=== PATIENT | male | born 1945 | race Caucasian/White ===

== ENCOUNTER 2016-08-09 11:33 | Emergency (ER) | payer OTHER ==
[2016-08-09] MEDS ORDERED: HYDROmorphone HCL 1 MG/ML SYR ONE ×2 (12:12→13:52)
[2016-08-09] MEDS ORDERED: ONDANSETRON HCL 4 MG/2 ML VIAL ONE (12:13)
--- NOTE | 2016-08-09 13:03 | CT REPORT ---
HISTORY: Left flank pain and nausea. COMPARISON: None. TECHNIQUE: This examination was performed using automated exposure control, adjustment of mA or kV according to patient size, and/or use of iterative reconstruction technique. Axial contiguous images of the abdome n and pelvis were obtained without oral or IV contrast, coronal reformat images also performed. FINDINGS: LUNGS: There are dependent atelectatic changes. The visualized lungs are otherwise clear. Hepatobiliary:No focal hepatic lesions are seen. The portal vein enhances normally. There is no intra hepatic biliary ductal dilatation. The gallbladder is incompletely distended. There are calcified gal lstones within the lumen of the gallbladder. Spleen: Normal in size and radiographic appearance. Pancreas: No focal pancreatic lesion or pancreatic ductal dilatation. Adrenals:Unremarkable. Kidneys: The kidneys are normal in size bilaterally. There is moderate left hydroureteronephrosis wit h asymmetric left perinephric inflammatory change. Within the wall the bladder, at the left ureterove sicular junction, best seen on image 11 of series 2, there is a 6 mm calcific density consistent with obstructing ureteral calculus. No definite renal calculi are identified. Peritoneum: There is no evidence of free fluid or free air. There is a small umbilical hernia which c ontains fat, without evidence of incarceration or obstruction. Vessels: Unremarkable. Lymph nodes: There is no lymphadenopathy. Bowel: The stomach is incompletely distended. The small bowel appears unremarkable. The appendix is w ell visualized and appears normal. The colon is incompletely distended with stool. No focal bowel wa ll thickening is seen. Pelvis: The prostate is markedly enlarged. There are multiple bladder calculi measuring up to 12 mm in size. Bones: The bones are normally mineralized and aligned. There are degenerative changes noted in spine. No blastic or lytic lesions are identified. The soft tissues appear unremarkable. IMPRESSION: 1. 6 mm left UVJ calculus with mild to moderate associated left hydroureteronephrosis. 2. Multiple bladder calculi. 3. Marked prostatic enlargement. 4. Cholelithiasis without CT evidence of cholecystitis. Final Electronic Signature: This report was electronically signed by Benedicto Muniz MD on 08/10/19 17 1:01 PM. christophe /
--- NOTE | 2016-08-09 15:08 | ER NURSING DOCUMENTATION ---
Nurse's Notes [facility] Name:Rajesh Mccray Age:70 yrs Sex:Male :1945 Arrival Date:08/09/2016 Time:11:33 Bed5 Private MD: Diagnosis:Renal Calculus;Dehydration Presentation: 08/09 11:43 Presenting complaint: Patient states: Left flank pain x 2-3. Transition of care: Home. cb 11:43 Method Of Arrival: Private Vehicle cb 11:43 Acuity: HEIDI 3 cb 11:44 Notified ED Physician of patient's arrival and CC Adam Rose notified. cb Triage Assessment: 11:43 General: Appears distressed, well groomed, Behavior is cooperative. cb 11:43 Pain: Complains of pain in left mid back Pain radiates to left mid back Pain currently cb is 8 out of 10 on a pain scale. EENT: No deficits noted. Neuro: Level of Consciousness is awake, alert, Oriented to person, place, time, event. Cardiovascular: Pulses are 2+ in left radial artery. Respiratory: Airway is patent Trachea midline Respiratory effort is even, unlabored, Respiratory pattern is regular, symmetrical. GI: Reports nausea, since [place]. : Denies burning with urination, urinary frequency. Derm: Denies rash or bruising. Musculoskeletal: No deficits noted. Historical: - Allergies: PENICILLINS; - Home Meds: 1. atorvastatin oral 2. tamsulosin oral 3. Metformin Oral - PMHx: hyperlipidema ; prediabetes ; - PSHx: HERNIA REPAIR; - Tetanus: < 10 years. - Ebola Screening: : Patient negative for fever greater than or equal to 101.5 degrees Fahrenheit, and additional compatible Ebola Virus Disease symptoms. Patient denies exposure to infectious person. Patient denies travel to an Ebola-affected area in the 21 days before illness onset. No symptoms or risks identified at this time. . - Immunization history: Flu Vaccine < 1 year. - Social history: Smoking status: Patient states was never smoker of tobacco. Screenin:47 Infectious Disease Risk None. Abuse screen: Denies threats or abuse. Denies injuries cb from another. Nutritional screening: No deficits noted. Vital Signs: 11:48 BP 143 / 65; Pulse 79; Resp 18; Temp 97.6; Pulse Ox 93% ; Weight 102.06 kg; Height 5 jt ft. 11 in. (180.34 cm); Pain 8/10; 12:35 Pulse Ox 82% on R/A; jt 12:35 Pulse Ox 94% on 2 lpm NC; Pain 5/10; jt 14:30 BP 152 / 78; Pulse Ox 87% on R/A; cb 11:48 Body Mass Index 31.38 (102.06 kg, 180.34 cm) jt ED Course: 11:34 Patient arrived in ED. jt 11:43 Kiara Jordan, RN is Primary Nurse. cb 11:44 Triage completed. cb 12:09 Rajesh Medina MD is Attending Physician. jm 12:[address] hz 12:[address]. hz 12:30 CAT SCAN; [place] [id number] In Process Unspecified. EDMS 12:47 Valuables Remains with patient Patient has correct armband on for positive cb identification. Placed in gown. Bed in low position. Call light in reach. Side rails up X2. Adult w/ patient. Pulse Ox - RN Monitoring Only NIBP On - RN Monitoring Only. 12:48 Inserted peripheral IV: 20 gauge in right hand and blood collected. Oxygen Oxygen cb administration via nasal cannula @ 2L/min. 13:02 Johnathon Sims MD is Referral Physician. Administered Medications: 11:55 Drug: NS 0.9% 1000 ml; Route: IV; Rate: bolus; Site: right hand; cb 12:40 Follow up: IV Status: Infusion continued; IV Intake: 1000ml cb 12:05 Drug: Zofran 4 mg; Route: IVP; Infused Over: 2 mins; Site: right hand; cb 12:41 Follow up: Response: Nausea is decreased cb 12:09 Drug: Dilaudid 0.5 mg; Route: IVP; Site: right hand; cb 12:09 Follow up: Response: No change in condition cb 12:42 Follow up: Response: Pain is unchanged, physician notified cb 12:20 Drug: Dilaudid 0.5 mg; Route: IVP; Site: right hand; cb 15:47 Follow up: Response: Pain is decreased cb 12:41 Drug: Toradol 30 mg; Route: IVP; Site: right hand; cb 12:54 Drug: NS 0.9% 1000 ml; Route: IV; Rate: bolus; Site: right hand; cb 14:00 Follow up: IV Status: Completed infusion; IV Intake: 1000ml cb 13:49 Drug: Dilaudid 1 mg; Route: IVP; Site: right hand; cb 15:51 Follow up: Response: Pain is decreased cb Point of Care Testing: Urine Dip: 13:01 pH: 6.0; ; Specific [place]: 1.030; Ketones: Negative; Glucose: Negative; Protein: cb Trace; Leukocytes: Negative; Nitrite: Negative ; Blood: 3 Vishnu/?L; Bilirubin: Negative ; Urobilinogen: Normal Intake: 12:40 IV: 1000ml; Total: 1000ml. cb 14:00 IV: 1000ml; Total: 2000ml. cb Outcome: 13:02 Discharge ordered by . mj 14:30 Discharged to home ambulatory, with family. cb 14:30 Condition: stable 14:30 Discharge Assessment: Patient awake, alert and oriented x 3. No cognitive and/or functional deficits noted. Patient verbalized understanding of disposition instructions. 14:30 Discharge instructions given to patient, family, Instructed on discharge instructions, follow up and referral plans. Demonstrated understanding of Prescriptions given X 3. 14:30 IV D/Liborio 15:07 Patient left the ED. cb Signatures: Dispatcher [employer] Kiara Lewis RN RN cb Meyer, John, MD MD jm Tennant, Joanne jt Zolnowski, Heather
--- NOTE | 2016-08-09 15:08 | ER PHYSICIAN DOCUMENTATION ---
Physician Documentation [facility] Name:Rajesh Mccray Age:70 yrs Sex:Male :1945 Arrival Date:08/09/2016 Time:11:33 Bed5 Private MD: Rajesh Carrillo Disposition: 08/09/16 13:02 Discharged to Home/Self Care. Impression: Renal Calculus, Dehydration. - Condition is Good. - Discharge Instructions: KIDNEY STONE w/ Colic. - Prescriptions for Percocet 5- 325 mg Oral Tablet - take 1 tablet by ORAL route every 6 hours As needed; 20 tablet. Flomax 0.4 mg Oral - take 1 capsule by ORAL route once daily 1/2 hour following the same meal each day; 15 capsule. Zofran 4 mg Oral Tablet - take 1-2 tablet by ORAL route every 4-6 hours As needed; 10 tablet. - Medical Reconciliation form form. - Follow up: Private Physician; When: As needed; Reason: Continuance of care. Follow up: Johnathon Sims MD; When: 2 - 3 days; Reason: Continuance of care. - Problem is new. - Symptoms have improved. HPI: 08/09 12:29 This 70 yrs old Male presents to ER via Private Vehicle with complaints of jm Flank Pain. 12:29 The patient complains of pain in the left mid back. The pain does not radiate. Onset: jm The symptom(s)/episode began/occurred today, 2 hour(s) ago. Modifying factors: the symptoms are aggravated by nothing. Associated signs and symptoms: Pertinent positives: nausea. Severity of pain: in the emergency department the pain is a 10 / 10. The patient has not experienced similar symptoms in the past. The patient has not recently seen a physician. Historical: - Allergies: PENICILLINS; - Home Meds: 1. atorvastatin oral 2. tamsulosin oral 3. Metformin Oral - PMHx: hyperlipidema ; prediabetes ; - PSHx: HERNIA REPAIR; - Tetanus: < 10 years. - Ebola Screening: : Patient negative for fever greater than or equal to 101.5 degrees Fahrenheit, and additional compatible Ebola Virus Disease symptoms. Patient denies exposure to infectious person. Patient denies travel to an Ebola-affected area in the 21 days before illness onset. No symptoms or risks identified at this time. . - Immunization history: Flu Vaccine < 1 year. - Social history: Smoking status: Patient states was never smoker of tobacco. ROS: 12:29 Abdomen/GI: Positive for nausea, Negative for abdominal pain, vomiting, diarrhea. jm 12:29 Back: Positive for pain at rest, pain with movement. 12:29 : Positive for flank pain, Negative for urinary symptoms, urinary frequency. 12:29 Neuro: Negative for headache, weakness. 12:29 All other systems are negative. Exam: 12:30 Constitutional: The patient appears alert, awake, in obvious distress, moderately jm distressed. 12:30 Eyes: Periorbital structures: appear normal, Conjunctiva: normal. 12:30 ENT: Mouth: is normal, Dental exam: normal. 12:30 Neck: Thyroid: appears normal, Trachea: no acute changes. 12:30 Cardiovascular: Rate: normal, Rhythm: regular. 12:30 Respiratory: Respirations: normal, Breath sounds: are normal. 12:30 Abdomen/GI: Bowel sounds: normal, Palpation: abdomen is soft and non-tender. 12:30 Back: pain, that is moderate, CVA tenderness, that is moderate, is noted on the left. 12:30 : CVA tenderness, on the left, Bladder: is normal. 12:30 Musculoskeletal/extremity: Pulses: are normal with no appreciated deficits, Perfusion: the patient is normally perfused throughout, Weight bearing: able to fully bear weight. 12:30 Skin: Appearance: Color: pink, no rash present. 12:30 Neuro: Mentation: is normal, Gait: is steady. 12:30 Psych: Behavior/mood is pleasant, cooperative, anxious, Affect is calm. Vital Signs: 11:48 BP 143 / 65; Pulse 79; Resp 18; Temp 97.6; Pulse Ox 93% ; Weight 102.06 kg; Height 5 jt ft. 11 in. (180.34 cm); Pain 8/10; 12:35 Pulse Ox 82% on R/A; jt 12:35 Pulse Ox 94% on 2 lpm NC; Pain 5/10; jt 14:30 BP 152 / 78; Pulse Ox 87% on R/A; cb 11:48 Body Mass Index 31.38 (102.06 kg, 180.34 cm) jt MDM: 11:46 Patient medically screened. 12:31 Differential diagnosis: nephrolithiasis, pyelonephritis. Data reviewed: vital signs, nurses notes, lab test result(s), radiologic studies, and as a result, I will discharge patient. Counseling: I had a detailed discussion with the patient and/or guardian regarding: the historical points, exam findings, and any diagnostic results supporting the discharge/admit diagnosis, lab results, the need for outpatient follow up, with the patient's primary care provider, a urologist. Medication response: The patient's symptoms have improved, Dilaudid. 15:08 ED course: 6mm stone noted in L UVJ, w mild hydro. Pt has stones in his bladder much jm larger than this one, so I assume this will drop soon. Pt given meds to deal with at home. . 08/09 12:30 Order name: CAT SCAN; [place] [id number]; Complete Time: 15:08 EDMS 08/09 12:34 Order name: Oxygen; Complete Time: 12:49 Dispensed Medications: 11:55 Drug: NS 0.9% 1000 ml; Route: IV; Rate: bolus; Site: right hand; cb 12:40 Follow up: IV Status: Infusion continued; IV Intake: 1000ml cb 12:05 Drug: Zofran 4 mg; Route: IVP; Infused Over: 2 mins; Site: right hand; cb 12:41 Follow up: Response: Nausea is decreased cb 12:09 Drug: Dilaudid 0.5 mg; Route: IVP; Site: right hand; cb 12:09 Follow up: Response: No change in condition cb 12:42 Follow up: Response: Pain is unchanged, physician notified cb 12:20 Drug: Dilaudid 0.5 mg; Route: IVP; Site: right hand; cb 15:47 Follow up: Response: Pain is decreased cb 12:41 Drug: Toradol 30 mg; Route: IVP; Site: right hand; cb 12:54 Drug: NS 0.9% 1000 ml; Route: IV; Rate: bolus; Site: right hand; cb 14:00 Follow up: IV Status: Completed infusion; IV Intake: 1000ml cb 13:49 Drug: Dilaudid 1 mg; Route: IVP; Site: right hand; cb 15:51 Follow up: Response: Pain is decreased cb Point of Care Testing: Urine Dip: 13:01 pH: 6.0; ; Specific [place]: 1.030; Ketones: Negative; Glucose: Negative; Protein: cb Trace; Leukocytes: Negative; Nitrite: Negative ; Blood: 3 Vishnu/?L; Bilirubin: Negative ; Urobilinogen: Normal Signatures: Kiara Jordan, RN RN Rajesh Shook MD MD jm
== END 2016-08-09 15:08 | disposition home or self-care (01) ==
LOC: ER 11:33
DX: N20.0 Calculus of kidney (principal); E86.0 Dehydration; R11.0 Nausea; Z79.899 Other long term (current) drug therapy
CPT/HCPCS: 74176; 96361; 96374; 96375; 96376; 99285; J1170; J2405